=== PATIENT | male | born 1975 | race Caucasian/White ===

== ENCOUNTER 2021-01-21 13:51 | Emergency (ER) | payer OTHER, SELFPAY ==
[2021-01-21 13:56] VITALS: BP 143/92; PULSE 88; RESP 15; O2SAT 96; BMI 37.1
--- NOTE | 2021-01-21 14:07 | XR_ITS ---
WS: [id number] Left foot, 3 views, 01/21/2021 Clinical Data: matthew nail in foot Comparison: None. Findings: There is a large nail which overlies the junction of the left great toe distal phalanx and proximal p halanx. The tip of the nail ends in the soft tissue adjacent to the midportion of the left second toe proxima l phalanx. No definite fractures are seen. XR/XR foot LT min 3V* [id number] Impression: Large nail which is adjacent to the base of the left great toe distal phalanx a nd the distal left great toe proximal phalanx.
--- NOTE | 2021-01-21 14:55 | ED_ITS ---
HPI - Extremity Problem General: Chief complaint: Extremity Injury, Lower Stated complaint: HE STATES I NAILED IT - NAIL IN L FOOT Time Seen by Provider: 01/21/21 14:21 History of Present Illness: HPI Narrative: Patient was doing sara on his house when he said sara nail gun down and somehow the sara nail gun discharged a sara nail into his foot above his big toe on the left side. Patient unable to move the nail because going into the boot and with pain. Patient's tetanus updated he had one 1 year ago. MD Complaint: extremity pain and other (Female in left foot) Onset (ago): minute(s) Pain Consistency: constant Location: left and lower extremity Severity scale (1-10): 2 Quality: burning Radiation: none Exacerbating factors: range of motion Associated symptoms: Reports no associated symptoms; Deny fever(s) Review of Systems Const: Denies: fever(s) or chills Skin/Breast: Reports: other (Sara nail embedded in left foot) Psych: Denies: anxiety or depression PFS ED PFSH: Social History (Updated 02/16/20 @ 11:56 by Chelsie Mallory LPN) Smoking and tobacco status: never smoked Physical Exam Const: COMMON NORMALS: no acute distress GENERAL APPEARANCE: cooperative Psych: COMMON NORMALS: mental status grossly normal Skin: OTHER: 1 5/8 inchroofing nails embedded to the left foot. X-rays revealed mostly soft tissue. Reviewed nail protrudes to the boot and enters above the first middle phalanges and extends into the base of the second toe phalanges. Area was anesthetized with lidocaine after boot was cut around the nail and nail was removed without difficulty. Dressingapplied. Patient tolerated procedure well. Course Vital Signs: Vital signs: Vital Signs Pulse Rate 88 01/21/21 13:56 Respiratory Rate 15 01/21/21 13:56 Blood Pressure 143/92 01/21/21 13:56 Pulse Oximetry 96 01/21/21 13:56 Discharge Plan Discharge Patient Disposition: Home Clinical Impression: Skin foreign body Condition: Stable Prescriptions: New tramadol 50 mg tablet 50 mg PO TID PRN (Reason: pain) Qty: 7 RF: 0 cephalexin 500 mg capsule 500 mg PO Q8H 7 Days Qty: 21 RF: 0 Discharge Orders: Discharge ED (Routine); Ordered 01/21/21 Ordered By: Alejandro Clayton Referrals: Ramon Valera [Primary Care Provider] - Discharge Diet: Usual diet Discharge Activity: Increase activity as tolerated Activity Restrictions/Additional Instructions: Watch for signs symptoms of infection in the wound areas. Can apply ice to help with discomfort. Follow-up your family medical provider if no significant provement or you can return here. Take antibiotics as directed. Can take Tylenol and/or ibuprofen for discomfort and are prescription that you were provided. Tetanus is up-to-date. Coding Level of Care Code ED Ultrasound Specialist for Nadya Hernandez
[2021-01-21] MEDS: lidocaine 1% INJ 20 mL INTRADERMA (15:05)
--- NOTE | 2021-01-21 15:11 | PC.NURSE ---
Wound dressed with 4x4 gauze and coban.
== END 2021-01-21 15:11 | disposition home or self-care (01) ==
PROVIDERS: Emergency Provider Nurse Practitioner Family; PCP Family Medicine
DX: S91.342A Puncture wound with foreign body, left foot, initial encounter (principal); W45.0XXA Nail entering through skin, initial encounter; W29.4XXA Contact with nail gun, initial encounter; Y92.018 Other place in single-family (private) house as the place of occurrence of the external cause
CPT/HCPCS: 73630; 99282

== ENCOUNTER 2022-08-02 10:41 | Emergency (ER) | payer OTHER, SELFPAY ==
[2022-08-02 10:51] VITALS: PULSE 71; TEMP 36.6; O2SAT 96; BMI 36.3
--- NOTE | 2022-08-02 10:54 | XRR_ITS ---
PROCEDURE INFORMATION: Exam: XR Right Hip Exam date and time: 08/02/2022 11:15 AM Age: 47 years old Clinical indication: Injury or trauma; Fall; Blunt trauma (contusions or hematomas); Right; Hip TECHNIQUE: Imaging protocol: Radiologic exam of the right hip. Views: 1 view hip with pelvis when performed. COMPARISON: No relevant prior studies available. FINDINGS: Bones/joints: Femoroacetabular alignment is normal bilaterally. There is no femoral fracture. Joint spaces are preserved. The bony pelvis is intact. Soft tissues: Visible soft tissues are unremarkable. XR/XR hip RT 2-3V wo/w pel* [id number] IMPRESSION: No acute findings.
[2022-08-02 11:25] VITALS: BP 171/102; PULSE 70; RESP 16; O2SAT 98
--- NOTE | 2022-08-02 11:34 | PC.PHAR ---
pt states he takes no rx medications pt states he had some ultram 50mg q6h prn filled 07/16/22 7d/s but states he only took one states it made him nauseous-pt states he took some cold and cough med a few weeks ago but hasnt been taking-
--- NOTE | 2022-08-02 12:19 | ED_ITS ---
HPI - Extremity Problem General: Chief complaint: Extremity Injury, Lower Stated complaint: fall/Right leg pain Time Seen by Provider: 08/02/22 11:01 Source: patient and family Mode of arrival: ambulatory Limitations: no limitations History of Present Illness: Patient presents to the emergency department today for evaluation treatment of right buttock and right leg pain after a fall. Patient states he was walking down some carpeted steps in his home today when he slipped. He states he sat down right on the edge of the step impacting his right mid buttock. He states since that time he has had point specific tenderness of the right mid buttock and, complains of a sensation change in the posterior thigh and proximal heel. Patient has been ambulatory and weightbearing but, states he is most comfortable when he is either standing or lying on his side. Patient has worsening pain while seated. He denies back pain. He has been able to void since the injury. states they looked at the area and did not notice any bruising. Review of Systems General: Reports: 10 or more systems reviewed and unremarkable except in HPI and below PFSH ED PFSH: Social History Smoking and tobacco status: never smoked Physical Exam Const: COMMON NORMALS: no acute distress, patient oriented x3 and alert HENMT: COMMON NORMALS: normocephalic, atraumatic and hearing grossly normal bilaterally HEAD & SCALP: normocephalic and atraumatic Eye: COMMON NORMALS: Equal, round and reactive pupils present, EOMs intact bilaterally and conjunctivae normal CONJUNCTIVA: Yes conjunctivae normal PUPIL: Yes Equal, round and reactive pupils present Neck/C-Spine: COMMON NORMALS: full ROM and no JVD Lymph: LYMPHATIC: no lymphadenopathy noted Resp: COMMON NORMALS: normal respiratory effort, No retractions and No use of accessory muscles Cardio: COMMON NORMALS: no JVD and regular rate RATE: regular rate Extremity: NARRATIVE EXTREMITY EXAM: Patient is independently ambulatory and weightbearing here in the emergency department. Patient has point specific tenderness at the right mid buttock region. He was nontender to palpation of his thoracic and lumbar vertebrae. Patient had no SI tenderness on palpation. Patient had no groin pain. Patient is able to fully flex and extend his hip, knee, and wiggle his toes on the right leg. Neuro: COMMON NORMALS: patient oriented x3 SENSORIUM/ORIENTATION: Yes alert OTHER: Patient still has sensation to the right posterior thigh though he describes it as dulled . Psych: COMMON NORMALS: mental status grossly normal, Normal thought process present, cooperative and normal affect THOUGHT PROCESS: Normal thought process present Skin: COMMON NORMALS: no rashes or lesions noted and turgor normal GENERAL SKIN EXAM: no rashes or lesions noted and turgor normal Course Vital Signs: Vital signs: Vital Signs Temperature 97.9 F 08/02/22 10:51 Pulse Rate 65 08/02/22 12:33 Respiratory Rate 16 08/02/22 12:33 Blood Pressure 100/84 08/02/22 12:33 Pulse Oximetry 98 08/02/22 12:33 Oxygen Delivery Me thod Room Air 08/02/22 11:25 MDM - Extremity (Nontraumatic) Medical Decision Making Patient presents emergency department today after impacting his right mid buttock on the stairs. Patient had no acute findings of concern on his vertebral examination and, is still able to bear weight and still has preserved sensation to his toes. Patient has been able to void. Patient has point specific tenderness to the mid buttock and, discussed with patient he most likely impacted his sciatic nerve which, will be tender and sore for several days. Explained to him it also causes a residual nerve discomfort down the right leg due to nerve distribution. X-ray was negative for any signs of acute bony abnormality including a pelvic ring fracture. Patient will be treated with muscle relaxer and anti-inflammatory medications for the next several days. He was also given [id number] options and at home remedies he can try as well. Recommended a follow-up appoint with his primary care doctor for any residual discomfort. Differential Diagnosis Unlikely lower extremity edema (Gluteal contusion, pelvic ring fracture, sciatic nerve injury, SI joint injury, lumbar compression fracture concern, coccyx fracture) Lab Data Radiology Impressions Hip/Pelvis X-Ray 08/02/22 10:54 IMPRESSION: No acute findings. Discharge Plan Discharge Patient Disposition: Home Clinical Impression: Contusion, buttock, Injury of sciatic nerve Condition: Stable Prescriptions: New naproxen 500 mg tablet 500 mg PO BID PRN (Reason: pain) Qty: 20 0RF Voltaren Arthritis Pain 1 % gel 4 g topical QID Qty: 100 0RF Rx Instructions: apply to right mid buttock prednisone 20 mg tablet 20 mg PO BID 5 Days Qty: 10 0RF tizanidine 4 mg capsule 4 mg PO Q8H PRN (Reason: muscle spasticity) Qty: 20 0RF No Action ibuprofen 200 mg Tablet 800 mg PO Q8H PRN (Reason: Pain) Discharge Orders: Discharge ED (Routine); Ordered 08/02/22 Ordered By: Merle Brown Referrals: Ramon Valera [Primary Care Provider] - Discharge Diet: Usual diet Discharge Activity: Increase activity as tolerated Patient Instructions: Sciatica (ED), Contusion in Adults (ED) Activity Restrictions/Additional Instructions: X-ray shows no signs of any acute fractures or injuries to the bone from your fall. You have most likely contused your right buttock region which, can unfortunately cause injury to the sciatic nerve in that area as well as cause compression due to inflammation and swelling. This can cause a radiating and residual pain or tingling from the nerve distribution down your right leg. This may last for a couple of days and we are providing you medication to help with both pain and inflammation in that area. You can apply ice to your right mid buttock for 15 to 20 minutes at a time and do encourage you to try and avoid any excessive time with direct pressure on your buttock as well. Follow-up with your primary care at the end of the week for a general recheck. However, if you develop inability to urinate or inability to hold your urine or stool or, develop inability to stand on the right leg you should be seen and reevaluated. Coding Level of Care Code ED Cloth Shrinking Supervisor for Nadya Hernandez
[2022-08-02] MEDS: ketorolac 30 mg/mL INJ IM (12:28)
[2022-08-02] MEDS: tizanidine 4 mg Tablet PO (12:28)
[2022-08-02] MEDS: predniSONE 20 mg Tablet 40 MG PO (12:28)
[2022-08-02 12:33] VITALS: BP 100/84; PULSE 65; RESP 16; O2SAT 98
== END 2022-08-02 12:49 | disposition home or self-care (01) ==
PROVIDERS: Emergency Provider Physician Assistant; PCP Family Medicine
DX: S74.01XA Injury of sciatic nerve at hip and thigh level, right leg, initial encounter (principal); S30.0XXA Contusion of lower back and pelvis, initial encounter; M79.604 Pain in right leg; W10.8XXA Fall (on) (from) other stairs and steps, initial encounter; Y92.019 Unspecified place in single-family (private) house as the place of occurrence of the external cause
CPT/HCPCS: 73502; 96372; 99284; J1885; J7512